=== PATIENT | male | born 2000 | race African-American/Black ===

== ENCOUNTER 2020-05-01 03:19 | Emergency (ER) | payer OTHER ==
[2020-05-01 03:32] VITALS: BP 119/66; PULSE 63; TEMP 98.5; BMI 24.3
[2020-05-01] MEDS ORDERED: IBUPROFEN 600 MG TABLET (FP) PO ONE ×2 (03:58→04:04)
--- NOTE | 2020-05-01 04:12 | PDOC ---
History of Present Illness - General Chief Complaint: Sore Throat Stated Complaint: NASEA,HEADACHE,SORETHROAT Time Seen by Provider: 05/01/20 03:43 History Source: Patient Exam Limitations: No Limitations - History of Present Illness Initial Comments: 05/01/20 04:07 Patient is a 19M with no significant PMH here today complaining of sore throat for the past three days. Patient reports associated nausea and subjective fever. Denies headache, voice changes, shortness of breath, chest pain, abdominal pain. Patient states that he was sent home from work and is requesting work note. Past History - Medical History Allergies/Adverse Reactions: Allergies Allergy/AdvReac Type Severity Reaction Status Date / Time No Known Allergies Allergy Verified 05/01/20 03:32 Home Medications: Ambulatory Orders Ibuprofen Oral Suspension [Motrin Oral Suspension -] 40 ml PO Q6H PRN #480 ml 12/04/16 COPD: No - Surgical History Appendectomy: Yes - Psycho-Social/Smoking History Smoking History: Never smoked Have you smoked in the past 12 months: No - Substance Abuse Hx (Audit-C & DAST Scrn) How often the patient has a drink containing alcohol: Never Score: In Men: 4 or > Positive; In Women: 3 or > Positive: 0 Screen Result (Pos requires Nsg. Audit-10AR): Negative Review of Systems - Review of Systems Able to Perform ROS?: Yes Comments:: 05/01/20 04:11 GENERAL/CONSTITUTIONAL: No fever or chills. No weakness. HEAD, EYES, EARS, NOSE AND THROAT: No change in vision. No ear pain or discharge. +sore throat. CARDIOVASCULAR: No chest pain or shortness of breath RESPIRATORY: No cough, wheezing, or hemoptysis. GASTROINTESTINAL: No nausea, vomiting, diarrhea or constipation. MUSCULOSKELETAL: No joint or muscle swelling or pain. No neck or back pain. SKIN: No rash NEUROLOGIC: No headache, vertigo, loss of consciousness, or change in strength/sensation. ALLERGIC/IMMUNOLOGIC: No hives or skin allergy. *Physical Exam - Vital Signs Last Vital Signs Temp Pulse Resp BP Pulse Ox 98.5 F 63 18 119/66 98 05/01/20 03:30 05/01/20 03:30 05/01/20 03:30 05/01/20 03:30 05/01/20 03:30 - Physical Exam 05/01/20 04:12 GENERAL: Awake, alert, and fully oriented, in no acute distress HEAD: No signs of trauma, normocephalic, atraumatic EYES: PERRLA, EOMI, sclera anicteric, conjunctiva clear ENT: Auricles normal inspection, hearing grossly normal, nares patent, oropharynx erythematous bilaterally with no exudates. Midline uvula. Moist mucosa NECK: Normal ROM, supple, no lymphadenopathy, JVD, or masses LUNGS: No distress, speaks full sentences, clear to auscultation bilaterally HEART: Regular rate and rhythm, normal S1 and S2, no murmurs, rubs or gallops, peripheral pulses normal and equal bilaterally. ABDOMEN: Soft, nontender, normoactive bowel sounds. No guarding, no rebound. No masses EXTREMITIES: Normal inspection, Normal range of motion, no edema. No clubbing or cyanosis. NEUROLOGICAL: Cranial nerves II through XII grossly intact. Normal speech, normal gait, no focal sensorimotor deficits SKIN: Warm, Dry, normal turgor, no rashes or lesions noted. ED Treatment Course - Medications Given in the ED: ED Medications Discontinued Medications Generic Name Dose Route Start Last Admin Trade Name Freq PRN Reason Stop Dose Admin Ibuprofen 600 mg 05/01/20 03:58 05/01/20 04:04 Motrin - PO 05/01/20 03:59 600 mg ONCE ONE Administration Medical Decision Making - Medical Decision Making 05/01/20 04:12 Patient is 19M here today with pharyngitis. Vitals normal and stable. Likely viral, will swab for possible strep, discharge. 05/01/20 05:12 Strep negative, will dc home. Discharge - Discharge Information Problems reviewed: Yes Clinical Impression/Diagnosis: Pharyngitis Condition: Good Disposition: HOME - Admission No - Follow up/Referral - Patient Discharge Instructions Patient Printed Discharge Instructions: DI for Viral Pharyngitis - Post Discharge Activity Work/Back to School Note: Back to Work
--- NOTE | 2020-05-01 04:13 | PDOC ---
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 No other complaints - Physicial Exam PE: 05/01/20 05:16 Afebrile VSS HEENT normal pharynxy and PERRLA TMs occluded with wax bilat Abd soft NTND no flank pain abd soft NT ND neuro intact - Medical Decision Making 05/01/20 05:17 Pt wants a sick note for work Discharge - Discharge Information Problems reviewed: Yes Clinical Impression/Diagnosis: Pharyngitis Condition: Good Disposition: HOME - Follow up/Referral - Patient Discharge Instructions Patient Printed Discharge Instructions: DI for Viral Pharyngitis - Post Discharge Activity Work/Back to School Note: Back to Work
== END 2020-05-01 05:15 | disposition home or self-care (01) ==
LOC: JER 03:19
DX: J02.9 Acute pharyngitis, unspecified (principal)
CPT/HCPCS: 87070; 87880; 99284-25

== ENCOUNTER 2021-01-04 15:17 | Emergency (ER) | payer OTHER | END 2021-01-04 16:51 | disposition home or self-care (01) | LOC: JVIRT 15:17 | DX: Z11.52 Encounter for screening for COVID-19 (principal) | CPT/HCPCS: C9803; G2251-GT; U0003 ==